=== PATIENT | male | born 1975 | race Caucasian/White ===

== ENCOUNTER 2020-06-02 13:35 | Emergency (ER) | payer BC ==
[~2020-06-02] VITALS: Ht 198.1 cm; Wt 104.5 kg
[2020-06-02 13:42] VITALS: BP 133/80; TEMP 97.8
[2020-06-02] MEDS ORDERED: PREDNISONE20 MG PO (16:28)
[2020-06-02 16:40] VITALS: PULSE 74
== END 2020-06-02 16:40 | disposition home or self-care (01) ==
LOC: COL.ER 13:35
DX: L25.8 Unspecified contact dermatitis due to other agents (principal)